=== PATIENT | male | born 1970 | race Caucasian/White ===

== ENCOUNTER 2017-02-02 18:18 | Emergency (ER) | payer OTHER ==
[2017-02-02 18:32] VITALS: BP 133/86; PULSE 82; RESP 16; TEMP 96.8
== END 2017-02-02 19:42 | disposition home or self-care (01) ==
LOC: EC 18:18
DX: Z02.83 Encounter for blood-alcohol and blood-drug test (principal)

== ENCOUNTER → 2023-06-28 | Outpatient (CLI) | payer OTHER ==
--- NOTE | 2023-06-28 09:22 | CT ---
EXAMINATION TYPE: CT abdomen wo con CT DLP: 474.1 mGycm, Automated exposure control for dose reduction was used. DATE OF EXAM: 06/28/2023 8:56 AM COMPARISON: CT chest 05/28/2023 CLINICAL INDICATION:Male, 53 years old with history of K42.9 UMBILICAL HERNIA WITHOUT OBSTRUCTION; um bilical hernia TECHNIQUE: Standard CT of the abdomen without IV or oral contrast. Lack of IV or oral contrast limi ts evaluation of solid and hollow organ viscera. Coronal and sagittal reformats were performed. FINDINGS: LOWER CHEST: Unremarkable ABDOMEN LIVER: Unremarkable GALLBLADDER AND BILE DUCTS: Unremarkable. PANCREAS: Unremarkable. SPLEEN: Unremarkable. ADRENAL GLANDS: Unremarkable. KIDNEYS AND URETERS: No evidence of hydronephrosis. Nonobstructive left inferior pole 2 mm calculus. Inferior right renal 1.9 cm cyst. PELVIS BLADDER: Unremarkable REPRODUCTIVE: Unremarkable. ABDOMEN & PELVIS STOMACH AND BOWEL: No focal wall thickening or surrounding inflammatory changes. Submucosal fat depos ition within the ascending colon suggestive of chronic inflammatory change. Few colonic diverticula o f the ascending colon. No evidence of bowel obstruction. PERITONEUM: No evidence of pneumoperitoneum or free fluid. VASCULATURE: No evidence of aortic aneurysm. MUSCULOSKELETAL: No acute osseous abnormalities LYMPH NODES: No gross evidence for lymphadenopathy. SOFT TISSUE/ABDOMINAL WALL: Small fat filled umbilical hernia with defect measuring 1.1 cm. IMPRESSION: 1. No acute abdominal process. 2. Small fat filled umbilical hernia. 3. Nonobstructive left renal calculus.
== END | disposition home or self-care (01) ==
LOC: RADCTMAIN 08:35
PROVIDERS: ATTEND Family Medicine
DX: K42.9 Umbilical hernia without obstruction or gangrene (principal); N20.0 Calculus of kidney
CPT/HCPCS: 74150